=== PATIENT | female | born 1960 | race Caucasian/White ===

== ENCOUNTER 2023-02-05 11:37 | Outpatient (CLI) | payer MEDICARE | END 2023-02-05 11:38 | disposition home or self-care (01) | LOC: CSHMAMMO 11:37 | PROVIDERS: ATTEND Family Medicine | DX: Z12.31 Encounter for screening mammogram for malignant neoplasm of breast (principal); Z85.830 Personal history of malignant neoplasm of bone | CPT/HCPCS: 77063; 77067 ==